=== PATIENT | female | born 1995 | race Two or more races ===

== ENCOUNTER 2020-07-15 23:28 | Emergency (ER) | payer MEDICAID, OTHER ==
[~2020-07-15] VITALS: Ht 160 cm; Wt 45.4 kg
[2020-07-16] MEDS ORDERED: MINERAL OIL 30 ML PO ONE (02:45)
[2020-07-16 03:28] VITALS: BP 140/77
== END 2020-07-16 03:38 | disposition home or self-care (01) ==
LOC: ER 23:31
DX: T16.2XXA Foreign body in left ear, initial encounter (principal); X58.XXXA Exposure to other specified factors, initial encounter; Y93.89 Activity, other specified; Y92.89 Other specified places as the place of occurrence of the external cause; Y99.8 Other external cause status
CPT/HCPCS: 69200; 70486

== ENCOUNTER 2021-02-17 22:35 | Emergency (ER) | payer MEDICAID ==
[~2021-02-17] VITALS: Ht 160 cm; Wt 43.1 kg
[2021-02-18 02:36] VITALS: BP 123/83
[2021-02-18] MEDS ORDERED: methylPREDNISolone SOD SUCC 125 MG/2 ML VL IM ONE (02:45)
[2021-02-18] MEDS ORDERED: diphenhdrAMINE HCL 50 MG/1 ML VL IM ONE (02:45)
== END 2021-02-18 04:06 | disposition home or self-care (01) ==
LOC: ER 22:38
DX: R21 Rash and other nonspecific skin eruption (principal); W57.XXXA Bitten or stung by nonvenomous insect and other nonvenomous arthropods, initial encounter; Y93.89 Activity, other specified; Y92.89 Other specified places as the place of occurrence of the external cause; Y99.8 Other external cause status
CPT/HCPCS: 96372

== ENCOUNTER 2021-03-27 04:36 | Emergency (ER) | payer MEDICAID ==
[~2021-03-27] VITALS: Ht 160 cm; Wt 43.1 kg
[2021-03-27] MEDS ORDERED: methylPREDNISolone SOD SUCC 125 MG/2 ML VL IM ONE (05:00)
[2021-03-27 05:06] VITALS: BP 140/94
[2021-03-27] MEDS ORDERED: LORATADINE 10 MG TAB PO ONE (05:15)
== END 2021-03-27 05:52 | disposition home or self-care (01) ==
LOC: ER 04:36
DX: T14.8XXA Other injury of unspecified body region, initial encounter (principal); W57.XXXA Bitten or stung by nonvenomous insect and other nonvenomous arthropods, initial encounter; Y93.9 Activity, unspecified; Y92.89 Other specified places as the place of occurrence of the external cause; Y99.8 Other external cause status
CPT/HCPCS: 96372; 99283; J2930

== ENCOUNTER 2022-01-24 22:37 | Emergency (ER) | payer MEDICAID ==
[~2022-01-24] VITALS: Ht 160 cm; Wt 44.0 kg
[2022-01-24 23:06] VITALS: BP 138/91
[2022-01-25] MEDS ORDERED: DIPH25CA66 PO (01:53)
== END 2022-01-25 01:59 | disposition home or self-care (01) ==
LOC: ER 22:37
DX: L29.9 Pruritus, unspecified (principal); Z79.899 Other long term (current) drug therapy

== ENCOUNTER 2023-03-04 08:52 | Emergency (ER) | payer MEDICAID ==
[~2023-03-04] VITALS: Ht 160 cm; Wt 43.4 kg
[~2023-03-04 08:52] MED LIST: DIPH25CA66 PO
[2023-03-04 09:24] LABS: Urine Bacteria NONE SEEN /hpf (None Seen); Urine Blood 3+ /uL (Negative); Urine Clarity CLOUDY (Clear); Urine Mucus FEW (None Seen); Urine Protein, UAD 2+ (Negative); Urine Specific Gravity 1.019 (1.001-1.035); Urine Urobilinogen Normal (Negative); Urine WBC 1138 /hpf (0 - 5)
[2023-03-04 09:25] LABS: Urine Color BROWN (Yellow)
[2023-03-04] MEDS ORDERED: cefTRIAXone SOD 1,000 MG VL IM ONE (09:30)
[2023-03-04 09:40] VITALS: BP 120/84; PULSE 101; RESP 18; TEMP 98.2; O2SAT 97
[2023-03-04] MEDS ORDERED: PHEN-922 PO (09:54)
[2023-03-04] MEDS ORDERED: BACDST PO (09:54)
== END 2023-03-04 10:02 | disposition home or self-care (01) ==
LOC: ER 08:52
DX: N39.0 Urinary tract infection, site not specified (principal); Z32.02 Encounter for pregnancy test, result negative
CPT/HCPCS: 81001; 81025; 87086; 96372; 99283; J0696

== ENCOUNTER 2023-03-13 23:20 | Emergency (ER) | payer MEDICAID ==
[~2023-03-13] VITALS: Ht 160 cm; Wt 42.0 kg
[~2023-03-13 23:20] MED LIST changes: +BACDST PO; +PHEN-922 PO
[2023-03-13 23:52] VITALS: BP 114/74; PULSE 109; RESP 19; TEMP 98.2
[2023-03-14 01:45] VITALS: O2SAT 99
[2023-03-14] MEDS ORDERED: PRED20TA2 PO (02:11)
[2023-03-14] MEDS ORDERED: CEPH500C PO (02:11)
[2023-03-14] MEDS ORDERED: DIPH25CA66 PO (02:11)
[2023-03-14] MEDS ORDERED: diphenhdrAMINE HCL 50 MG/1 ML VL IM ONE (02:15)
[2023-03-14] MEDS ORDERED: DexAMETHasone SOD PHOS 10MG/1ML VIAL INJ IM ONE (02:15)
== END 2023-03-14 02:55 | disposition home or self-care (01) ==
LOC: ER 23:20
DX: S80.862A Insect bite (nonvenomous), left lower leg, initial encounter (principal); S40.862A Insect bite (nonvenomous) of left upper arm, initial encounter; S40.861A Insect bite (nonvenomous) of right upper arm, initial encounter; S10.96XA Insect bite of unspecified part of neck, initial encounter; Z79.899 Other long term (current) drug therapy; W57.XXXA Bitten or stung by nonvenomous insect and other nonvenomous arthropods, initial encounter; Y93.89 Activity, other specified; Y92.89 Other specified places as the place of occurrence of the external cause; Y99.8 Other external cause status
CPT/HCPCS: 96372; 99284; J1100; J1200

== ENCOUNTER 2023-04-25 18:49 | Emergency (ER) | payer MEDICAID ==
[~2023-04-25] VITALS: Ht 160 cm; Wt 43.2 kg
[~2023-04-25 18:49] MED LIST changes: +CEPH500C PO; +PRED20TA2 PO
[2023-04-25 20:24] VITALS: BP 104/60; PULSE 93; RESP 17; O2SAT 99
[2023-04-25 22:50] LABS: Urine Bacteria FEW /hpf (None Seen); Urine Blood 2+ /uL (Negative); Urine Clarity HAZY (Clear); Urine Color Yellow (Yellow); Urine Mucus FEW (None Seen); Urine Protein, UAD 1+ (Negative); Urine Specific Gravity 1.023 (1.001-1.035); Urine Urobilinogen Normal (Negative); Urine WBC 64 /hpf (0 - 5)
== END 2023-04-25 20:24 | disposition left against medical advice (07) ==
LOC: ER 18:49
DX: R21 Rash and other nonspecific skin eruption (principal); Z53.21 Procedure and treatment not carried out due to patient leaving prior to being seen by health care provider
CPT/HCPCS: 81001; 81025

== ENCOUNTER 2023-08-14 14:35 | Emergency (ER) | payer MEDICAID ==
[~2023-08-14] VITALS: Ht 160 cm; Wt 43.3 kg
[2023-08-14] MEDS: METOCLOPRAMIDE HCL 5MG/ml INJ 2ml VIAL IV ONE (15:21)
[2023-08-14] MEDS: SODIUM CHLORIDE 0.9% 1,000 ML IV ONE (15:21)
[2023-08-14 15:32] LABS: Basophils # (auto) 0 10 ^3/uL (0-0.2); Basophils % (auto) 0.2 % (0.0-2.0); Eosinophils # (auto) 0 10 ^3/uL (0-0.8); Eosinophils % (auto) 0.1 % (0.0-7.0); Hematocrit 36.9 % (36.0-46.0); Hemoglobin 12.7 g/dL (12.2-16.2); Lymphocytes # (auto) 1.1 10 ^3/uL (0.4-5.4); Lymphocytes % (auto) 12.4 % (10.0-50.0); Mean Corpuscular Hemoglobin 30.2 pg (28.0-32.0); Mean Corpuscular Hgb Conc. 34.4 g/dL (32.0-36.0); Mean Corpuscular Volume 87.8 fL (80.0-100.0); Monocytes # (auto) 0.4 10 ^3/uL (0-1.3); Monocytes % (auto) 4.2 % (0.0-12.0); Neutrophils # (auto) 7.7 10 ^3/uL (1.6-8.6); Neutrophils % (auto) 83.1 % (37.0-80.0); Red Blood Cells 4.21 10^6/uL (4.0-5.20); Red Cell Distribution Width 14.2 % (11.8-14.3); White Blood Cell 9.3 10^3/uL (4.4-10.8)
[2023-08-14 15:34] LABS: Urine Bacteria FEW /hpf (None Seen); Urine Blood Negative /uL (Negative); Urine Clarity Clear (Clear); Urine Protein, UAD Negative (Negative); Urine Specific Gravity 1.005 (1.001-1.035); Urine Urobilinogen Normal (Negative); Urine WBC 1 /hpf (0 - 5); Urine pH 7.5 (5.0-8.0)
[2023-08-14 15:36] LABS: Urine Color STRAW (Yellow)
[2023-08-14 15:49] LABS: Chloride 104 mmol/L (98-107); Potassium 3.9 mmol/L (3.5-5.1); Sodium 133 mmol/L (136-145)
[2023-08-14 15:50] LABS: Anion Gap 8 (5-15); Carbon Dioxide 21 mmol/L (20-30)
[2023-08-14 15:51] LABS: Calcium 9.6 mg/dL (8.5-10.1)
[2023-08-14 15:55] LABS: Glucose 81 mg/dL (74-106)
[2023-08-14 15:56] LABS: BUN/Creatinine Ratio 9.8 (10.0-20.0); Blood Urea Nitrogen < 5 mg/dL (9-23)
[2023-08-14] MEDS ORDERED: ZOFR4T PO (16:22)
[2023-08-14 17:06] VITALS: BP 128/71; PULSE 71; RESP 18; TEMP 97.8; O2SAT 99
== END 2023-08-14 17:06 | disposition home or self-care (01) ==
LOC: ER 14:35
DX: O21.0 Mild hyperemesis gravidarum (principal); Z79.899 Other long term (current) drug therapy; Z3A.12 12 weeks gestation of pregnancy
CPT/HCPCS: 36415; 76801; 80048; 81001; 85025; 96361; 96374; 99285; J2765; J7030

== ENCOUNTER 2023-11-24 18:21 | Emergency (ER) | payer MEDICAID ==
[~2023-11-24] VITALS: Ht 160 cm; Wt 50.0 kg
[~2023-11-24 18:21] MED LIST changes: +ZOFR4T PO
[2023-11-24 19:26] LABS: Basophils # (auto) 0 10 ^3/uL (0-0.2); Basophils % (auto) 0.2 % (0.0-2.0); Eosinophils # (auto) 0.1 10 ^3/uL (0-0.8); Eosinophils % (auto) 0.6 % (0.0-7.0); Hematocrit 31.5 % (36.0-46.0); Hemoglobin 10.9 g/dL (12.2-16.2); Lymphocytes # (auto) 1.3 10 ^3/uL (0.4-5.4); Lymphocytes % (auto) 15.6 % (10.0-50.0); Mean Corpuscular Hgb Conc. 34.8 g/dL (32.0-36.0); Mean Corpuscular Volume 92.2 fL (80.0-100.0); Monocytes # (auto) 0.8 10 ^3/uL (0-1.3); Neutrophils # (auto) 6.4 10 ^3/uL (1.6-8.6); Neutrophils % (auto) 74.6 % (37.0-80.0); Nucleated Red Blood Cells % 0.1 %; Red Blood Cells 3.41 10^6/uL (4.0-5.20); Red Cell Distribution Width 14.1 % (11.8-14.3); White Blood Cell 8.5 10^3/uL (4.4-10.8)
[2023-11-24 19:39] LABS: INR 0.92 (0.9-1.15); Partial Thromboplastin Time 28.3 SEC (24.5-34.5); Prothrombin Time 9.8 sec (9.3-11.8)
[2023-11-24] MEDS ORDERED: ACET500T58 PO (20:25)
[2023-11-24] MEDS ORDERED: PHENSUP38 PR (20:25)
[2023-11-24 21:04] VITALS: BP 106/73; PULSE 90; RESP 18; TEMP 97.9; O2SAT 99
== END 2023-11-24 21:08 | disposition home or self-care (01) ==
LOC: ER 18:21
DX: O22.43 Hemorrhoids in pregnancy, third trimester (principal); R10.2 Pelvic and perineal pain; Z88.2 Allergy status to sulfonamides; Z3A.29 29 weeks gestation of pregnancy; Z79.899 Other long term (current) drug therapy
CPT/HCPCS: 36415; 85025; 85610; 85730

== ENCOUNTER 2024-05-28 13:14 | Emergency (ER) | payer MEDICAID ==
[~2024-05-28] VITALS: Ht 236.2 cm; Wt 50.2 kg
[~2024-05-28 13:14] MED LIST changes: +ACET500T58 PO; +PHENSUP38 PR
[2024-05-28] MEDS ORDERED: DOXY-286 PO (14:07)
--- NOTE | 2024-05-28 14:08 | ED.PDOC ---
History of Present Illness HPI Comments 21-year-old female patient presents to the clinic for skin over the toenail in the right foot. Patient reports that she had to cut this toenail approximately 1 month ago because he broke and then she started to have this growth. Patient reports that she does have some tenderness to the tip of the toe. Chief Complaint: Wound Check Time Seen by MD: 13:27 Primary Care Provider: CARMEN Allergies: Coded Allergies: Sulfamethoxazole w/Trimethoprim (Verified Allergy, Unknown, 11/24/23) Home Meds Active Scripts Doxycycline Hyclate (DOXYCYCLINE HYCLATE) 100 Mg Tab, 1 TAB PO BID for 10 Days, #20 TAB Prov:ENIOGISSELL PRESCHOOL DISABILITY TEACHER 05/28/24 Acetaminophen (Acetaminophen) 500 Mg Tab, 500 MG PO Q4HP PRN, #30 TAB Prov:ANA LUISA ARIZMENDI PAC 11/24/23 Phenylephrine-Shark Liver Oil- (Hemorrhoidal Suppositorie 0.25-3-85.5 %) 1 Sup Sup, 1 SUP SD BIDP PRN, #20 SUPP Prov:ANA LUISA ARIZMENDI PAC 11/24/23 Ondansetron Odt 4MG Tab (ZOFRAN PO) 4 Mg Tb, 4 MG PO Q8HPRN PRN for 7 Days, #21 TAB ODT TAB-DISSOLVE IN MOUTH, THEN SWALLOW Prov:SANJAY LEWIS MD 08/14/23 Prednisone (Prednisone) 20 Mg Tab, 20 MG PO BID for 5 Days, #10 TAB 0 Refills Prov:LI BOLDEN 03/14/23 Diphenhydramine Hcl (Benadryl Allergy) 25 Mg Cap, 2 CAP PO Q6HPRN, #30 CAP 0 Refills Prov:LI BOLDEN 03/14/23 Cephalexin Monohydrate (Cephalexin) 500 Mg Cap, 1 CAP PO BID for 7 Days, #14 CAP 0 Refills Prov:IL BOLDEN 03/14/23 Phenazopyridine HCl (Phenazopyridine Hydrochlo) 200 Mg Tab, 200 MG PO TID, #6 TAB Prov:PRATIMA ENNIS 03/04/23 Sulfamethoxazole W/Trimethopri (Bactrim Ds Tablet) 1 Tab Tb, 1 TAB PO BID for 10 Days, #20 TAB Prov:PRATIMA ENNIS 03/04/23 Diphenhydramine Hcl (Benadryl Allergy) 25 Mg Cap, 1 CAP PO Q4HPRN PRN, #30 CAP 0 Refills one tablet every 4 to 6 hours as needed for itching Prov:EDELMIRA MCKEON 01/25/22 Mode of Arrival: Ambulatory Past Medical History PAST MEDICAL HISTORY: Denies Surgical History: Denies all surgeries SPECIALTY FINISHING UTILITY PERSON History: No Pertinent SPECIALTY FINISHING UTILITY PERSON History Family History Family History: Unknown Social History Smoker: Non-Smoker Alcohol: Denies ETOH Use Drugs: Denies Drug Use Lives In: Home Constitutional: denies: chills, diaphoresis, fatigue, fever, malaise, sweats, weakness, others EENTM: denies: blurred vision, double vision, ear bleeding, ear discharge, ear drainage, ear pain, ear ringing, eye pain, eye redness, hearing loss, mouth pain, mouth swelling, nasal discharge, nose bleeding, nose congestion, nose pain, photophobia, tearing, throat pain, throat swelling, voice changes, others Respiratory: denies: cough, hemoptysis, orthopnea, SOB at rest, shortness of breath, SOB with excertion, stridor, wheezing, others Cardiovascular: denies: chest pain, dizzy spells, diaphoresis, Dyspnea on exertion, edema, irregular heart beat, left arm pain, lightheadedness, palpitations, PND, syncope, others Gastrointestinal: denies: abdomen distended, abdominal pain, blood streaked bowels, constipated, diarrhea, dysphagia, difficulty swallowing, hematemesis, melena, nausea, poor appetite, poor fluid intake, rectal bleeding, rectal pain, vomiting, others Genitourinary: denies: abnormal vagina bleeding, burning, dyspareunia, dysuria, flank pain, frequency, hematuria, incontinence, pain, , vagina dis charge, urgency, others Neurological: denies: dizziness, fainting, headache, left sided numbness, left sided weakness, numbness, paresthesia, pre-existing deficit, right sided numbness, right sided weakness, seizure, speech problems, tingling, tremors, weakness, others Musculoskeletal: denies: back pain, gout, joint pain, joint swelling, muscle pain, muscle stiffness, neck pain, others Integumetry: denies: bruises, change in color, change in hair/nails, dryness, laceration, lesions, lumps, rash, wounds, others Allergic/Immunocompromised: denies: Difficulty Healing, Frequent Infections, Hives, Itching, others Hematologic/Lymphatic: denies: anemia, blood clots, easy bleeding, easy bruising, swollen glands, others Endocrine: denies: excessive hunger, excessive sweating, excessive thirst, excessive urination, flushing, intolerance to cold, intolerance to heat, unexplained weight gain, unexplained weight loss, others Physical Exam General Appearance: No Apparent Distress, Normal HEENT: Normal ENT Inspection, Pharynx Normal, TMs Normal Neck: Full Range of Motion, Non-Tender, Normal, Normal Inspection Respiratory: Chest Non-Tender, Lungs Clear, No Accessory Muscle Use, No Respiratory Distress, Normal Breath Sounds Cardiovascular: No Edema, No JVD, No Murmur, No Gallop, Normal Peripheral Pulses, Regular Rate/Rhythm Breast Exam: Deferred Gastrointestinal: No Organomegaly, Non Tender, No Pulsatile Mass, Normal Bowel Sounds, Soft Genitalia: Deferred Pelvic: Deferred Rectal: Deferred Extremities: No calf tenderness, Normal capillary refill, Normal inspection, Normal range of motion, Non-tender, No pedal edema Musculoskeletal : Apperance: Normal Neurologic: Alert, revenue cycle specialist II-XII nml as Tested, No Motor Deficits, Normal Affect, Normal Mood, No Sensory Deficits Cerebellar Function: Normal Reflexes: Normal Skin: Dry, Normal Color, Warm, Other (granuloma to the outer aspct of the right great toe near the nail) Lymphatic: No Adenopathy Was a procedure done? Was a procedure done?: No Differential Dx Considerations may include: paronychia, ingrown toenail, cellulitis X-Ray, Labs, Meds, VS Vital Signs Date Time Temp Pulse Resp B/P (MAP) Pulse Ox O2 Delivery O2 Flow Rate FiO2 05/28/24 14:32 15 99 Room Air* 0 21 05/28/24 14:31 98.1 82 15 103/70 (81) 99 98.1 05/28/24 13:31 98.8 83 16 117/78 (91) 98 X-Ray, Labs, Meds, VS Comment On re-evaluation patient has symptomatic improvement. Patient is stable for discharge at this time. All test results and diagnostic imaging have been interpreted. All diagnostic findings, discharge care, and education instruction provided to the patient. Follow-up with PCP in 2-3 days Patient verbalized understanding, discharge instructions and agrees to treatment plan Vital signs are stable Patient is ambulatory Patient advised of which symptoms necessitate a return visit to the emergency room. Patient to return emergency room for any new worsening symptoms. Patient is aware that the purpose of this visit is for an acute medical emergency requiring emergent stabilization. Chronic conditions, including malignancies have not been ruled out. Patient is instructed to follow up with PCP as directed for continued care and workup. If unable to arrange follow up, patient is to return to the emergency room for reassessment. Patient was given verbal and written discharge instructions and acknowledges understanding Time of 1ST Reevaluation: 14:10 Reevaluation 1ST: Unchanged Patient Education/Counseling: Diagnosis, Treatment, Prognosis, Need For Follow Up Family Education/Counseling: No Family Present Departure 1 Departure Time of Disposition: 14:06 Impression: Primary Impression: Granuloma of great toe Disposition: HOME / SELF CARE / HOMELESS Condition: Stable e-Prescriptions Doxycycline Hyclate (DOXYCYCLINE HYCLATE) 100 Mg Tab 1 TAB PO BID for 10 Days, #20 TAB Prov: GISSELL STEEN 05/28/24 Discharged With: Self Critical Care Note Critical Care Time?: No Stability Stability form required: No Heart Score Heart Score: Heart Score Response (Comments) Value History N/A 0 EKG N/A 0 Age N/A 0 Risk Factors N/A 0 Troponin N/A 0 Total 0 GISSELL STEEN May 28, 2024 14:07
[2024-05-28 14:31] VITALS: BP 103/70; PULSE 82; TEMP 98.1
[2024-05-28 14:32] VITALS: RESP 15; O2SAT 99
== END 2024-05-28 14:34 | disposition home or self-care (01) ==
LOC: ER 13:14
DX: L92.9 Granulomatous disorder of the skin and subcutaneous tissue, unspecified (principal); Z88.1 Allergy status to other antibiotic agents; Z88.2 Allergy status to sulfonamides; Z79.899 Other long term (current) drug therapy

== ENCOUNTER 2024-10-22 14:23 | Emergency (ER) | payer MEDICAID ==
[~2024-10-22] VITALS: Ht 160 cm; Wt 53.2 kg
[~2024-10-22 14:23] MED LIST changes: +DOXY-286 PO
--- NOTE | 2024-10-22 15:11 | ED.PDOC ---
EMPLOYEE PLACEMENT SPECIALIST HPI Comments 29 y/o F, with no prior medical history presents to the ED for CC of vaginal bleeding. Patient states, she has been experiencing abnormal vaginal bleeding with associated clots, irregular periods, and white vaginal discharge [id number]. Patient relays, that she has had her menstrual period twice within the last two weeks. Patient comments, that she is currently x8 months and symptoms began shortly after, giving . Patient denies current , pelvic pain, abdominal pain, weakness, fatigue, or nausea. No other symptoms or modifying factors present at this time. Chief Complaint: Vaginal Bleed Time Seen by MD: 15:15 Reviewed Notes: Nurses Notes, Medications, Allergies Allergies: Coded Allergies: Sulfamethoxazole w/Trimethoprim (Verified Allergy, Unknown, 11/24/23) Home Meds Active Scripts Doxycycline Hyclate (DOXYCYCLINE HYCLATE) 100 Mg Tab, 1 TAB PO BID for 10 Days, #20 TAB Prov:GISSELL STEEN CROP PICKER 05/28/24 Acetaminophen (Acetaminophen) 500 Mg Tab, 500 MG PO Q4HP PRN, #30 TAB Prov:ANA LUISA ARIZMENDI PAC 11/24/23 Phenylephrine-Shark Liver Oil- (Hemorrhoidal Suppositorie 0.25-3-85.5 %) 1 Sup Sup, 1 SUP MT BIDP PRN, #20 SUPP Prov:ANA LUISA ARIZMENDI PAC 11/24/23 Ondansetron Odt 4MG Tab (ZOFRAN PO) 4 Mg Tb, 4 MG PO Q8HPRN PRN for 7 Days, #21 TAB ODT TAB-DISSOLVE IN MOUTH, THEN SWALLOW Prov:SANJAY LEWIS MD 08/14/23 Prednisone (Prednisone) 20 Mg Tab, 20 MG PO BID for 5 Days, #10 TAB 0 Refills Prov:LI BOLDEN 03/14/23 Diphenhydramine Hcl (Benadryl Allergy) 25 Mg Cap, 2 CAP PO Q6HPRN, #30 CAP 0 Refills Prov:LI BOLDEN 03/14/23 Cephalexin Monohydrate (Cephalexin) 500 Mg Cap, 1 CAP PO BID for 7 Days, #14 CAP 0 Refills Prov:LI BOLDEN 03/14/23 Phenazopyridine HCl (Phenazopyridine Hydrochlo) 200 Mg Tab, 200 MG PO TID, #6 TAB Prov:PRATIMA ENNIS 03/04/23 Sulfamethoxazole W/Trimethopri (Bactrim Ds Tablet) 1 Tab Tb, 1 TAB PO BID for 10 Days, #20 TAB Prov:PRATIMA ENNIS 03/04/23 Diphenhydramine Hcl (Benadryl Allergy) 25 Mg Cap, 1 CAP PO Q4HPRN PRN, #30 CAP 0 Refills one tablet every 4 to 6 hours as needed for itching Prov:EDELMIRA MCKEON 01/25/22 Information Source: Patient Mode of Arrival: Ambulatory Timing: Months Severity: Moderate Vaginal Discharge: White Vaginal Lesions: None Bleeding Quality: Dark Vaginal Mass: None Onset Of Mass/Bleeding: Menstrual Sexual Activity: Sexually Active Last Consensual [place]: Unknown Control: Depo-Provera Blood Type: Unknown Symptoms of Possible : None Associated Signs and Symptoms: Vaginal Discharge, Vaginal Bleeding Past Medical History PAST MEDICAL HISTORY: Denies Surgical History: Denies all surgeries COAT JOINER History: No Pertinent COAT JOINER History Family History Family History: Unknown Social History Smoker: Non-Smoker Alcohol: Denies ETOH Use Drugs: Denies Drug Use Lives In: Home Constitutional: denies: chills, diaphoresis, fatigue, fever, malaise, sweats, weakness, others EENTM: denies: blurred vision, double vision, ear bleeding, ear discharge, ear drainage, ear pain, ear ringing, eye pain, eye redness, hearing loss, mouth pain, mouth swelling, nasal discharge, nose bleeding, nose congestion, nose pain, photophobia, tearing, throat pain, throat swelling, voice changes, others Respiratory: denies: cough, hemoptysis, orthopnea, SOB at rest, shortness of breath, SOB with excertion, stridor, wheezing, others Cardiovascular: denies: chest pain, dizzy spells, diaphoresis, Dyspnea on exertion, edema, irregular heart beat, left arm pain, lightheadedness, palpitations, PND, syncope, others Gastrointestinal: denies: abdomen distended, abdominal pain, blood streaked bowels, constipated, diarrhea, dysphagia, difficulty swallowing, hematemesis, melena, nausea, poor appetite, poor fluid intake, rectal bleeding, rectal pain, vomiting, others Genitourinary: reports: abnormal vagina bleeding, vagina discharge; denies: burning, dyspareunia, dysuria, flank pain, frequency, hematuria, incontinence, pain, , urgency, others Neurological: denies: dizziness, fainting, headache, left sided numbness, left sided weakness, numbness, paresthesia, pre-existing deficit, right sided numbness, right sided weakness, seizure, speech problems, tingling, tremors, weakness, others Musculoskeletal: denies: back pain, gout, joint pain, joint swelling, muscle pain, muscle stiffness, neck pain, others Integumetry: denies: bruises, change in color, change in hair/nails, dryness, laceration, lesions, lumps, rash, wounds, others Allergic/Immunocompromised: denies: Difficulty Healing, Frequent Infections, Hives, Itching, others Hematologic/Lymphatic: denies: anemia, blood clots, easy bleeding, easy bruising, swollen glands, others Endocrine: denies: excessive hunger, excessive sweating, excessive thirst, excessive urination, flushing, intolerance to cold, intolerance to heat, unexplained weight gain, unexplained weight loss, others Psychiatric: denies: anxiety, bipolar disorder, depression, hopeless, panic disorder, schizophrenia, sleepless, suicidal, others All Other Systems: Reviewed and Negative Physical Exam General Appearance: No Apparent Distress HEENT: Normal ENT Inspection, Pharynx Normal, TMs Normal Neck: Full Range of Motion, Non-Tender, Normal, Normal Inspection Respiratory: Chest Non-Tender, Lungs Clear, No Accessory Muscle Use, No Respiratory Distress, Normal Breath Sounds Cardiovascular: No Edema, No JVD, No Murmur, No Gallop, Normal Peripheral Pul ses, Regular Rate/Rhythm Breast Exam: Deferred Gastrointestinal: No Organomegaly, Non Tender, No Pulsatile Mass, Normal Bowel Sounds, Soft Genitalia: Deferred Pelvic: Deferred Rectal: Deferred Extremities: No calf tenderness, Normal capillary refill, Normal inspection, Normal range of motion, Non-tender, No pedal edema Musculoskeletal : Apperance: Normal Neurologic: Alert, scraper burrer II-XII nml as Tested, No Motor Deficits, Normal Affect, Normal Mood, No Sensory Deficits Cerebellar Function: Normal Reflexes: Normal Skin: Dry, Normal Color, Warm Lymphatic: No Adenopathy Was a procedure done? Was a procedure done?: No Differential Diagnosis (COAT JOINER) Vaginal Bleeding: Menorrhagia, Menometrorrhagia, Menstrual Bleeding X-Ray, Labs, Meds, VS Vital Signs Date Time Temp Pulse Resp B/P (MAP) Pulse Ox O2 Delivery O2 Flow Rate FiO2 10/22/24 14:40 98.2 79 16 127/79 (95) 97 98.2 Lab Test 10/22/24 15:12 10/22/24 15:11 Range/Units Urine Color Light-yellow Yellow Urine Clarity Clear Clear Urine pH 6.5 5.0-9.0 Urine Specific [place] 1.021 1.001-1.035 Urine Protein Negative Negative Urine Ketones Negative Negative Urine Blood 3+ H Negative /uL Urine Nitrite Negative Negative Urine Bilirubin Negative Negative Urine Urobilinogen Normal Negative mg/dL Urine Leukocyte Esterase Negative Negative /uL Urine RBC 14 0 - 4 /hpf Urine Microscopic WBC 1 0-5 /HPF Urine Squamous Epithelial Cells Few <5 /hpf Urine Bacteria None seen None Seen /hpf Urine Glucose Normal Normal mg/dL White Blood Count 7.0 4.4-10.8 10^3/uL Red Blood Count 4.75 4.0-5.20 10^6/uL Hemoglobin 14.3 12.2-16.2 g/dL Hematocrit 42.0 36.0-46.0 % Mean Corpuscular Volume 88.4 80.0-100.0 fL Mean Corpuscular Hemoglobin 30.2 28.0-32.0 pg Mean Corpuscular Hemoglobin Concent 34.1 32.0-36.0 g/dL Red Cell Distribution Width 13.8 11.8-14.3 % Platelet Count 304 140-450 10^3/uL Mean Platelet Volume 6.8 L 6.9-10.8 fL Neutrophils (%) (Auto) 59.8 37.0-80.0 % Lymphocytes (%) (Auto) 30.4 10.0-50.0 % Monocytes (%) (Auto) 7.6 0.0-12.0 % Eosinophils (%) (Auto) 1.4 0.0-7.0 % Basophils (%) (Auto) 0.8 0.0-2.0 % Neutrophils # (Auto) 4.2 1.6-8.6 10 ^3/uL Lymphocytes # (Auto) 2.1 0.4-5.4 10 ^3/uL Monocytes # (Auto) 0.5 0-1.3 10 ^3/uL Eosinophils # (Auto) 0.1 0-0.8 10 ^3/uL Basophils # (Auto) 0.1 0-0.2 10 ^3/uL Nucleated Red Blood Cells 0.2 % Beta HCG, Quantitative 0.7 L 1.5-4.2 mIU/mL The urine test is negative for any infection The CBC is within normal limits The quantitative hCG is 0.7 The patient is being discharged and will follow up with the primary care doctor for abnormal vaginal bleeding Images Reviewed?: Images reviewed and evaluated by me Time of 1ST Reevaluation: 15:45 Reevaluation 1ST: Unchanged Patient Education/Counseling: Diagnosis, Treatment, Prognosis, Need For Follow Up Family Education/Counseling: No Family Present Departure 1 Departure Time of Disposition: 16:02 Impression: Primary Impression: Abnormal vaginal bleeding Disposition: 01 HOME / SELF CARE / HOMELESS Condition: Fair Discharged With: Self Critical Care Note Critical Care Time?: No Stability Stability form required: No Heart Score Heart Score: Heart Score Response (Comments) Value History N/A 0 EKG N/A 0 Age N/A 0 Risk Factors N/A 0 Troponin N/A 0 Total 0 I personally scribed for SANJAY LEWIS MD ([email or web address]) on 10/22/24 at 15:11. Electronically submitted by Nisha Garcia ([email or web address]). I personally scribed for SANJAY LEWIS MD ([email or web address]) on 10/22/24 at 15:31. Electronically submitted by Nisha Garcia ([email or web address]). SANJAY LEWIS MD October 22, 2024 15:11
[2024-10-22 15:13] LABS: Urine Bacteria None Seen /hpf (None Seen)
[2024-10-22 15:20] LABS: Basophils # (auto) 0.1 10 ^3/uL (0-0.2); Basophils % (auto) 0.8 % (0.0-2.0); Eosinophils # (auto) 0.1 10 ^3/uL (0-0.8); Eosinophils % (auto) 1.4 % (0.0-7.0); Hemoglobin 14.3 g/dL (12.2-16.2); Lymphocytes # (auto) 2.1 10 ^3/uL (0.4-5.4); Lymphocytes % (auto) 30.4 % (10.0-50.0); Mean Corpuscular Hemoglobin 30.2 pg (28.0-32.0); Mean Corpuscular Hgb Conc. 34.1 g/dL (32.0-36.0); Mean Corpuscular Volume 88.4 fL (80.0-100.0); Monocytes # (auto) 0.5 10 ^3/uL (0-1.3); Monocytes % (auto) 7.6 % (0.0-12.0); Neutrophils # (auto) 4.2 10 ^3/uL (1.6-8.6); Neutrophils % (auto) 59.8 % (37.0-80.0); Nucleated Red Blood Cells % 0.2 %; Platelet Count (auto) 304 10^3/uL (140-450); Red Blood Cells 4.75 10^6/uL (4.0-5.20); Red Cell Distribution Width 13.8 % (11.8-14.3)
[2024-10-22 15:24] LABS: Urine Blood 3+ /uL (Negative); Urine Clarity Clear (Clear); Urine Color Light-Yellow (Yellow); Urine Protein, UAD Negative (Negative); Urine Specific Gravity 1.021 (1.001-1.035); Urine Squamous Epithelial Cell FEW /hpf (<5); Urine Urobilinogen Normal (Negative); Urine WBC 1 /HPF (0-5); Urine pH 6.5 (5.0-9.0)
[2024-10-22 17:30] VITALS: BP 119/70; PULSE 79; RESP 16; TEMP 98; O2SAT 99
== END 2024-10-22 18:41 | disposition home or self-care (01) ==
LOC: ER 14:31
DX: N93.9 Abnormal uterine and vaginal bleeding, unspecified (principal); Z88.2 Allergy status to sulfonamides; Z88.1 Allergy status to other antibiotic agents
CPT/HCPCS: 36415; 81001; 84702; 85025

== ENCOUNTER 2025-02-24 11:48 | Emergency (ER) | payer MEDICAID ==
[~2025-02-24] VITALS: Ht 160 cm; Wt 49.5 kg
[2025-02-24 11:53] VITALS: BP 131/87; PULSE 83; RESP 16; TEMP 98; O2SAT 98
[2025-02-24] MEDS ORDERED: CEPH500C PO (13:30)
[2025-02-24] MEDS ORDERED: TRIO1TP EX (13:30)
--- NOTE | 2025-02-24 13:31 | ED.PDOC ---
History of Present Illness(SKN HPI Comments 30-year-old female with a chief complaint of an insect bite. The patient presents with a worsening symptoms falling mosquito bites on the left lateral thigh. There were bitten by mosquitos on the left lateral thigh proximally and week and a half ago. Since then, the area has been coming increasingly painful, itchy, and swollen, particularly worsening over the past weekend. The itchiness and the pain have cause difficulty sleeping, and the swelling has made walking uncomfortable. The patient has a attempted self-treatment with Benadryl cream, other itch creams and ice, but these measures have not provider relief. No fever or drainage from the site is reported. Denies any other symptoms at the moment. Chief Complaint: Insect Bite Time Seen by MD: 13:30 Primary Care Provider: terence History of Present Illness: Nurses Notes, Medications, Allergies Allergies: Coded Allergies: Sulfamethoxazole w/Trimethoprim (Verified Allergy, Unknown, 11/24/23) Home Meds Active Scripts Triamcinolone Acetonide (Triamcinolone Acetonide) 0.1 % Cre, 1 APPLIC EX BID for 5 Days, #60 GRAMS 0 Refills Prov:MEREDITH GILL CHILD NUTRITION ASSISTANT 02/24/25 Cephalexin Monohydrate (Cephalexin) 500 Mg Cap, 1 CAP PO QID for 5 Days, #20 CAP 0 Refills Prov:MEREDITH GILL CHILD NUTRITION ASSISTANT 02/24/25 Doxycycline Hyclate (DOXYCYCLINE HYCLATE) 100 Mg Tab, 1 TAB PO BID for 10 Days, #20 TAB Prov:GISSELL STEEN AUTO BODY ESTIMATOR 05/28/24 Acetaminophen (Acetaminophen) 500 Mg Tab, 500 MG PO Q4HP PRN, #30 TAB Prov:ANA LUISA ARIZMENDI PAC 11/24/23 Phenylephrine-Shark Liver Oil- (Hemorrhoidal Suppositorie 0.25-3-85.5 %) 1 Sup Sup, 1 SUP NH BIDP PRN, #20 SUPP Prov:ANA LUISA ARIZMENDI 11/24/23 Ondansetron Odt 4MG Tab (ZOFRAN PO) 4 Mg Tb, 4 MG PO Q8HPRN PRN for 7 Days, #21 TAB ODT TAB-DISSOLVE IN MOUTH, THEN SWALLOW Prov:SANJAY LEWIS MD 08/14/23 Prednisone (Prednisone) 20 Mg Tab, 20 MG PO BID for 5 Days, #10 TAB 0 Refills Prov:LI BOLDEN 03/14/23 Diphenhydramine Hcl (Benadryl Allergy) 25 Mg Cap, 2 CAP PO Q6HPRN, #30 CAP 0 Refills Prov:LI BOLDEN 03/14/23 Cephalexin Monohydrate (Cephalexin) 500 Mg Cap, 1 CAP PO BID for 7 Days, #14 CAP 0 Refills Prov:LI BOLDEN 03/14/23 Phenazopyridine HCl (Phenazopyridine Hydrochlo) 200 Mg Tab, 200 MG PO TID, #6 TAB Prov:PRATIMA ENNIS 03/04/23 Sulfamethoxazole W/Trimethopri (Bactrim Ds Tablet) 1 Tab Tb, 1 TAB PO BID for 10 Days, #20 TAB Prov:PRATIMA ENNIS 03/04/23 Diphenhydramine Hcl (Benadryl Allergy) 25 Mg Cap, 1 CAP PO Q4HPRN PRN, #30 CAP 0 Refills one tablet every 4 to 6 hours as needed for itching Prov:EDELMIRA MCKEON 01/25/22 Information Source: Patient Mode of Arrival: Ambulatory Severity: Moderate Timing: Days Duration: Since onset, Days Prehospital treatment: None Location: Other (Left lateral thigh) Mechanism: Insect (Mosquito bite) Occurence: Outdoors Object: None Condition of Object: None Retained Foreign Body: Unknown Wound Type: None Immunization Status of Animal: NA Tetanus: Unknown History of: None Associated Signs and Symptoms: None Past Medical History PAST MEDICAL HISTORY: Denies Surgical History: Denies all surgeries MANAGER OF BROADCAST CONTENT History: No Pertinent MANAGER OF BROADCAST CONTENT History Family History Family History: Reviewed,noncontributory to illness, Unknown Social History Smoker: Non-Smoker Alcohol: Denies ETOH Use Drugs: Denies Drug Use Lives In: Home Constitutional: denies: chills, diaphoresis, fatigue, fever, malaise, sweats, weakness, others EENTM: denies: blurred vision, double vision, ear bleeding, ear discharge, ear drainage, ear pain, ear ringing, eye pain, eye redness, hearing loss, mouth p ain, mouth swelling, nasal discharge, nose bleeding, nose congestion, nose pain, photophobia, tearing, throat pain, throat swelling, voice changes, others Respiratory: denies: cough, hemoptysis, orthopnea, SOB at rest, shortness of br eath, SOB with excertion, stridor, wheezing, others Cardiovascular: denies: chest pain, dizzy spells, diaphoresis, Dyspnea on exertion, edema, irregular heart beat, left arm pain, lightheadedness, palpitations, PND, syncope, others Gastrointestinal: denies: abdomen distended, abdominal pain, blood streaked bowels, constipated, diarrhea, dysphagia, difficulty swallowing, hematemesis, melena, nausea, poor appetite, poor fluid intake, rectal bleeding, rectal pain, vomiting, others Genitourinary: denies: abnormal vagina bleeding, burning, dyspareunia, dysuria, flank pain, frequency, hematuria, incontinence, pain, , vagina discharge, urgency, others Neurological: denies: dizziness, fainting, headache, left sided numbness, left sided weakness, numbness, paresthesia, pre-existing deficit, right sided numbness, right sided weakness, seizure, speech problems, tingling, tremors, weakness, others Musculoskeletal: denies: back pain, gout, joint pain, joint swelling, muscle pain, muscle stiffness, neck pain, others Integumetry: reports: others (Left lateral thigh itchiness and swelling); denies: bruises, change in color, change in hair/nails, dryness, laceration, lesions, lumps, rash, wounds Allergic/Immunocompromised: denies: Difficulty Healing, Frequent Infections, Hives, Itching, others Hematologic/Lymphatic: denies: anemia, blood clots, easy bleeding, easy bruising, swollen glands, others Endocrine: denies: excessive hunger, excessive sweating, excessive thirst, excessive urination, flushing, intolerance to cold, intolerance to heat, unexplained weight gain, unexplained weight loss, others Psychiatric: denies: anxiety, bipolar disorder, depression, hopeless, panic disorder, schizophrenia, sleepless, suicidal, others All Other Systems: Reviewed and Negative Physical Exam Exam Comments Skin is warm, dry, appropriate for ethnicity. 12 x 12 cm erythematous papule on left lateral thigh, warmth to palpation, skin pharyngeal boil, no fluctuance, no tenderness to palpation General Appearance: No Apparent Distress, Normal HEENT: Normal ENT Inspection, Pharynx Normal, TMs Normal Neck: Full Range of Motion, Non-Tender, Normal, Normal Inspection Respiratory: Chest Non-Tender, Lungs Clear, No Accessory Muscle Use, No Respiratory Distress, Normal Breath Sounds Cardiovascular: No Edema, No JVD, No Murmur, No Gallop, Normal Peripheral Pulses, Regular Rate/Rhythm Breast Exam: Deferred Gastrointestinal: No Organomegaly, Non Tender, No Pulsatile Mass, Normal Bowel Sounds, Soft Genitalia: Deferred Pelvic: Deferred Rectal: Deferred Extremities: No calf tenderness, Normal capillary refill, Normal inspection, Normal range of motion, Non-tender, No pedal edema Musculoskeletal : Apperance: Normal Neurologic: Alert, aerosol line operator II-XII nml as Tested, No Motor Deficits, Normal Affect, Normal Mood, No Sensory Deficits Cerebellar Function: Normal Reflexes: Normal Skin: Dry, Normal Color, Warm Lymphatic: No Adenopathy Was a procedure done? Was a procedure done?: No Differential Diagnosis (INTG) Differential Diagnosis: Other X-Ray, Labs, Meds, VS Vital Signs Date Time Temp Pulse Resp B/P (MAP) Pulse Ox O2 Delivery O2 Flow Rate FiO2 02/24/25 11:53 98.0 83 16 131/87 98 98.0 Current Medications Medications (Trade) Dose Ordered Sig/Rosemary Route Start Time Stop Time Status Last Admin Ketorolac Tromethamine (Toradol Injection) 30 mg ONCE ONCE IM 02/24/25 13:30 02/24/25 13:31 DC 02/24/25 13:52 Methylprednisolone Sodium Succinate (Solu Medrol) 125 mg ONCE ONCE IM 02/24/25 13:30 02/24/25 13:31 DC 02/24/25 13:52 X-Ray, Labs, Meds, VS Comment 30-year-old female with a chief complaint of an insect bit. Patient arrives alert and oriented, ABC's intact, afebrile, vital signs stable, saturating well in room air Patient was given: Ketorolac, prednisone. Tolerated medications with no adverse reaction. Patient likely with local inflammatory response from possible insect bite/sting. No evidence of systemic reaction such as shortness of breath, diffuse rash, d rooling, facial/lip swelling. Doubtful for cellulitis given no fever, minimal erythema, minimal warmth. However, will give hand-written prescription for keflex in case symptoms worsen. Patient remains with minimal symptoms. Remains hemodynamically stable. Thought safe for discharge home. Tylenol and/or motrin at home for pain. Benadryl for itchiness. Hydrocortisone for itchiness. Ice/cold compress for comfort. Follow-up with primary care doctor in 2-3 days. Return to ER as needed. Additional MDM Review of External, Non-ED records: External records reviewed. Discussion with independent historian (EMS, family) history obtained from the patient/parents (if applicable) at bedside Chronic conditions affecting care: None Social determinants of health affecting care: None Consideration of admission (observation or admission): I considered escalation of care to admission for this patient, however given the reassuring workup, the patient is safe for outpatient management. Discussion with the Radiology: No Tests considered but not performed: Prescription medication considered but not given: 12 lead EKG interpretation: Time of 1ST Reevaluation: 14:00 Reevaluation 1ST: Unchanged Patient Education/Counseling: Diagnosis, Treatment, Prognosis Family Education/Counseling: No Family Present SEPSIS Sepsis Screen Date sepsis recognized/suspect: Feb 24, 2025 Time Sepsis recognized/suspect: 1156 Recent Procedure: No On Antibiotic Therapy: No Respiratory Rate >20: No Heart Rate >90: No Temp<36 C (96.8 F) or >38.3 C: No SBP <90 or MAP <65 mmHG: No New Acute Mental Status Change: No Is the patient on CPAP, BIPAP,: No Vital Signs Date Time Temp Pulse Resp B/P (MAP) Pulse Ox O2 Delivery O2 Flow Rate FiO2 02/24/25 11:53 98.0 83 16 131/87 98 98.0 Departure 1 Departure Time of Disposition: 13:29 Impression: Primary Impression: Insect bite Qualified Codes: S70.362A - Insect bite (nonvenomous), left thigh, initial e ncounter; W57.XXXA - Bitten or stung by nonvenomous insect and other nonvenomous arthropods, initial encounter Disposition: HOME / SELF CARE / HOMELESS Condition: Stable e-Prescriptions Triamcinolone Acetonide (Triamcinolone Acetonide) 0.1 % Cre 1 APPLIC EX BID for 5 Days, #60 GRAMS 0 Refills Prov: MEREDITH GILL CHILD NUTRITION ASSISTANT 02/24/25 Cephalexin Monohydrate (Cephalexin) 500 Mg Cap 1 CAP PO QID for 5 Days, #20 CAP 0 Refills Prov: MEREDITH GILL CHILD NUTRITION ASSISTANT 02/24/25 Critical Care Note Critical Care Time?: No Stability Stability form required: No Heart Score Heart Score: Heart Score Response (Comments) Value History N/A 0 EKG N/A 0 Age N/A 0 Risk Factors N/A 0 Troponin N/A 0 Total 0 I personally scribed for MEREDITH GILL NP ([email or web address]) on 02/24/25 at 13:36. Electronically submitted by Aries Foster ([email or web address]). MEREDITH GILL NP Feb 24, 2025 13:31
[2025-02-24] MEDS ORDERED: KETOROLAC TROMETH 30 MG/ML 1ML VIAL ONE (13:45)
[2025-02-24] MEDS ORDERED: methylPREDNISolone SOD SUCC 125 MG/2 ML VL ONE (13:45)
[2025-02-24] MEDS: methylPREDNISolone SOD SUCC 125 MG/2 ML VL IM ONE (13:52)
[2025-02-24] MEDS: KETOROLAC TROMETH 30 MG/ML 1ML VIAL IM ONE (13:52)
== END 2025-02-24 14:10 | disposition home or self-care (01) ==
LOC: ER 11:48
DX: S70.362A Insect bite (nonvenomous), left thigh, initial encounter (principal); Z88.2 Allergy status to sulfonamides; W57.XXXA Bitten or stung by nonvenomous insect and other nonvenomous arthropods, initial encounter; Y93.89 Activity, other specified; Y92.89 Other specified places as the place of occurrence of the external cause; Y99.8 Other external cause status
CPT/HCPCS: 96372; 99284; J1885; J2919